=== PATIENT | female | born 2005 | race Caucasian/White ===

== ENCOUNTER 2025-07-11 15:08 | Inpatient (IN) ==
[2025-07-11 16:42] LABS: Base Excess VBG 0.9 mEq/L; HCO3 VBG 22 mmol/L; Oxygen Saturation VBG 87.0 %; PCO2 VBG 25 mmHg (38-50); PO2 VBG 52 mmHg; pH VBG 7.55 (7.36-7.41)
[2025-07-11] MEDS: ACETAMINOPHEN 1,000 MG/100 ML VIAL IV STA (16:57)
[2025-07-11] MEDS: SODIUM CHLORIDE 0.9% 1,000 ML IV SCH ×2 (16:57→20:59)
[2025-07-11 17:01] LABS: Hematocrit (blood only) 20.8 % (37.0-47.0); Hemoglobin 7.5 g/dl (12.0-16.0); White Blood Count 0.32 K/ul (4.8-10.8)
[2025-07-11 17:01] LABS: Appearance Urine Clear (Clear); Bacteria Urine Automated None Seen (None Seen); Cast Urine Automated 0-2 /lpf (0-2); Epithelial Cell Urine Auto 0-2 /hpf (0-2); Glucose Urine UA Negative (Negative); RBC Urine Automated 0-2 /hpf (0-2); WBC Urine Automated 0-5 /hpf (0-5)
[2025-07-11 17:03] LABS: Mean Corpuscular Hemoglobin 30.5 pg (25.0-34.0); Mean Corpuscular Volume 84.6 fL (80.0-100.0); RDW Standard Deviation 48.8 fL (36.4-46.3); Red Blood Count 2.46 M/uL (4.20-5.40)
[2025-07-11 17:08] LABS: Alanine Aminotransferase 58.0 U/L (7-52); Alkaline Phosphatase 78.0 U/L (34-104); Anion Gap 9.0 (3-11); Bilirubin,Total 0.8 mg/dl (0.2-1.0); Blood Urea Nitrogen 17.0 mg/dl (6-23); Calcium 8.9 mg/dl (8.6-10.3); Carbon Dioxide 23.0 mmol/L (21-32); Chloride 104.0 mmol/L (98-107); Creatinine Clr Calc Pharmacy 126.0 ml/min; Glucose 115.0 mg/dl (70-99(Fasting)); Magnesium 1.7 mg/dl (1.7-2.4); Potassium 3.6 mmol/L (3.5-5.1); Sodium 136.0 mmol/L (136-145); Total Protein 6.4 gm/dl (6.0-8.3)
[2025-07-11 17:09] LABS: Platelet Count 9 K/uL (130-400)
--- NOTE | 2025-07-11 17:25 | XRay Report ---
Chest radiograph, one view History: Sepsis Comparison: None Findings: Single AP view of the chest performed. No focal consolidation or pleural effusion. No pneumothorax. Left chest wall port with catheter tip at the lower SVC. Right mastectomy changes. The cardiomediastinal silhouette is within normal limits. Normal pulmonary vascularity. No evidence for lymphadenopathy. No visualized bony or soft tissue abnormality. Impression: Normal chest radiograph Electronically signed by Tomasz Amin 07-11-2025 5:25 PM
[2025-07-11] MEDS: OPTIRAY 320 125ml IV ONE (17:28)
[2025-07-11 17:36] LABS: INR 1.0 (0.9-1.1); Prothrombin Time 11.2 Seconds (9.0-12.0)
--- NOTE | 2025-07-11 17:40 | Emergency Department Note ---
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 Fever began today. Tmax 102. Patient reports no chest pain difficulty breathing nausea vomiting diarrhea headache or abdominal pain. Patient does report she received chemotherapy on July 01 July 02 and July 03 at [place] and then traveled back to the area here where she lives. Home Medications Medication Instructions Recorded Confirmed Type loratadine 10 mg tablet (Claritin) 10 mg PO HS 07/11/25 07/11/25 History Allergies Allergy/AdvReac Type Severity Reaction Status Date / Time No Known Allergies Allergy Verified 07/11/25 18:11 Past Med/Surg History Problem List (Updated 07/11/25 @ 19:10 by Jonathan Goyal MD) Thrombocytopenia (Acute) Neutropenic fever (Acute) Breast mass, right Medical History No pertinent past medical history Surgical History H/O wisdom tooth extraction Family History Mother No problems noted. Father No problems noted. Grandfather (Paternal) Hypertension Myocardial infarction Grandmother (Paternal) Breast cancer Denies family history of Ovarian cancer Prostate cancer Colorectal cancer Social History Smoking Status: Never smoker Hx Alcohol Use: No Hx Substance Use: No Preferred Language: Chinese Visual Impairment: No Limitations Hearing Ability: Normal marital status: Single Current Living Situation: Family Current Living Situation Comment: Mom, Dad, 2 brothers and a dog current occupational status: student Feels Safe at Home: Yes Childhood Exposure to Second-Hand Smoke: No Diet: regular caffeine: No during the past year weight has: remained stable Dental Care, Regularly: Yes Physical Activity Frequency: 5-6 Times per Week Seatbelt Use: always Sunscreen Use: Yes Physical Exam Vital Signs Vital Signs - 24 hr 07/11/25 15:40 07/11/25 16:03 07/11/25 16:06 Temperature 37.7 C H 38.0 C H Temperature Source Oral Oral Pulse Rate 136 H 114 H Pulse Rate [Apical] 109 H Pulse Rate from SpO2 Sensor 115 H Respiratory Rate 18 14 20 Respiratory Effort / Characteristics Non-Labored Spontaneous Non-Labored Spontaneous Respiratory Depth Normal Normal Respiratory Pattern Regular Regular Blood Pressure 100/67 Blood Pressure [Right Arm] 107/71 Blood Pressure Mean 78 Blood Pressure Mean [Right Arm] 83 Blood Pressure Position [Right Arm] Sitting Pulse Oximetry 99 100 99 Oxygen Delivery Method Room Air Room Air Sepsis Recent Fever Within 48 Hours No Sepsis New/Unexplained Change in Mental Status N/A Sepsis Action Taken by Nursing No Action Required 07/11/25 16:07 07/11/25 16:12 07/11/25 16:30 Temperature Temperature Source Pulse Rate 113 H Pulse Rate [Apical] Pulse Rate from SpO2 Sensor 128 H 108 H Respiratory Rate 18 18 Respiratory Effort / Characteristics Respiratory Depth Respiratory Pattern Blood Pressure Blood Pressure [Right Arm] Blood Pressure Mean Blood Pressure Mean [Right Arm] Blood Pressure Position [Right Arm] Pulse Oximetry 99 99 Oxygen Delivery Method Sepsis Recent Fever Within 48 Hours Sepsis New/Unexplained Change in Mental Status Sepsis Action Taken by Nursing 07/11/25 16:31 07/11/25 16:31 07/11/25 16:48 Temperature Temperature Source Pulse Rate 120 H Pulse Rate [Apical] Pulse Rate from SpO2 Sensor 122 H Respiratory Rate 16 Respiratory Effort / Characteristics Respiratory Depth Respiratory Pattern Blood Pressure 104/68 104/68 Blood Pressure [Right Arm] Blood Pressure Mean 76 76 Blood Pressure Mean [Right Arm] Blood Pressure Position [Right Arm] Pulse Oximetry 100 Oxygen Delivery Method Sepsis Recent Fever Within 48 Hours Sepsis New/Unexplained Change in Mental Status Sepsis Action Taken by Nursing 07/11/25 17:00 07/11/25 17:42 07/11/25 17:48 Temperature 37.5 C Temperature Source Pulse Rate 111 H 104 H 107 H Pulse Rate [Apical] Pulse Rate from SpO2 Sensor 111 H 107 H Respiratory Rate 20 19 19 Respiratory Effort / Characteristics Respiratory Depth Respiratory Pattern Blood Pressure 105/73 110/65 111/69 Blood Pressure [Right Arm] Blood Pressure Mean 83 71 83 Blood Pressure Mean [Right Arm] Blood Pressure Position [Right Arm] Pulse Oximetry 99 99 98 Oxygen Delivery Method Sepsis Recent Fever Within 48 Hours Sepsis New/Unexplained Change in Mental Status Sepsis Action Taken by Nursing 07/11/25 18:18 07/11/25 18:33 07/11/25 18:45 Temperature Temperature Source Pulse Rate 105 H 118 H 100 H Pulse Rate [Apical] Pulse Rate from SpO2 Sensor 105 H 119 H Respiratory Rate 15 18 15 Respiratory Effort / Characteristics Respiratory Depth Respiratory Pattern Blood Pressure 98/59 L 110/63 106/69 Blood Pressure [Right Arm] Blood Pressure Mean 72 78 82 Blood Pressure Mean [Right Arm] Blood Pressure Position [Right Arm] Pulse Oximetry 98 99 98 Oxygen Delivery Method Sepsis Recent Fever Within 48 Hours Sepsis New/Unexplained Change in Mental Status Sepsis Action Taken by Nursing 07/11/25 18:45 07/11/25 19:00 07/11/25 19:18 Temperature Temperature Source Pulse Rate 100 H Pulse Rate [Apical] Pulse Rate from SpO2 Sensor 98 H 106 H Respiratory Rate 14 Respiratory Effort / Characteristics Respiratory Depth Respiratory Pattern Blood Pressure 106/69 114/76 Blood Pressure [Right Arm] Blood Pressure Mean 82 82 Blood Pressure Mean [Right Arm] Blood Pressure Position [Right Arm] Pulse Oximetry 99 99 Oxygen Delivery Method Sepsis Recent Fever Within 48 Hours Sepsis New/Unexplained Change in Mental Status Sepsis Action Taken by Nursing 07/11/25 19:19 07/11/25 19:33 07/11/25 19:45 Temperature 37.2 C Temperature Source Oral Pulse Rate Pulse Rate [Apical] Pulse Rate from SpO2 Sensor 94 H 103 H Respiratory Rate 14 Respiratory Effort / Characteristics Respiratory Depth Respiratory Pattern Blood Pressure 106/69 110/73 Blood Pressure [Right Arm] Blood Pressure Mean 81 90 Blood Pressure Mean [Right Arm] Blood Pressure Position [Right Arm] Pulse Oximetry 100 100 Oxygen Delivery Method Sepsis Recent Fever Within 48 Hours Sepsis New/Unexplained Change in Mental Status Sepsis Action Taken by Nursing 07/11/25 19:45 07/11/25 20:01 Temperature Temperature Source Pulse Rate 101 H Pulse Rate [Apical] Pulse Rate from SpO2 Sensor Respiratory Rate Respiratory Effort / Characteristics Respiratory Depth Respiratory Pattern Blood Pressure 110/73 Blood Pressure [Right Arm] Blood Pressure Mean 90 Blood Pressure Mean [Right Arm] Blood Pressure Position [Right Arm] Pulse Oximetry Oxygen Delivery Method Sepsis Recent Fever Within 48 Hours Sepsis New/Unexplained Change in Mental Status Sepsis Action Taken by Nursing Physical Exam GENERAL: Cachectic. HENT: Exam performed. -Head: Normocephalic and atraumatic. -Mouth/Throat: The oropharynx is clear and moist. No trismus in the jaw. No dental abscesses or uvula swelling. No oropharyngeal exudate or tonsillar abscesses. EYES: Conjunctivae and EOM are normal. Pupils are equal, round, and reactive to light. Right eye exhibits no discharge. Left eye exhibits no discharge. No scleral icterus. NECK: Normal range of motion. Neck supple. No JVD present. CV: Tachycardic rate, regular rhythm, normal heart sounds and intact distal pulses. There is no peripheral edema. Palpable radial pulses bue. PULM/CHEST: Effort normal and breath sounds normal. No respiratory distress. No stridor. She has no wheezes. She has no rales. ABD: The abdomen is soft. There is no tenderness. There is no rebound, no guarding. NEURO: She is alert and oriented to person, place, and time. She has normal strength. No cranial nerve deficit or sensory deficit. Coordination and gait normal. GCS eye subscore is 4. GCS verbal subscore is 5. GCS motor subscore is 6. Cerebellar tests wnl. Course Course 1603: The patient was evaluated in room B10. A complete history and physical exam was performed Cardiac monitoring: An order was placed for continuous cardiac monitoring. The monitor shows a rate of 110 with sinus tachycardia rhythm interpreted by [facility] Sepsis protocols initiated. 1850: Vital signs stable. Labs show white blood cell count of 0.32 hemoglobin 7.5 platelet count 9 neutrophil count less than 0.5 lactic acid within normal limits. Urinalysis CTA chest CT head BioFire negative. Spoke with the patient's oncology team at [facility] Dr. Janet Durand ([phone]). She agrees with work up to this point. She states to add vancomycin on for the patient 1 dose and obtain a MRSA swab. She also asked that 1 unit of platelets to be transfused for the patient. Patient will be admitted to the [facility] team. Administered Medications Vancomycin HCl (Vancomycin Hcl / Nss) 1,000 mg in 270 mls @ 200 mls/hr IV NOW STA Stop: 07/11/25 21:31 Last Admin: 07/11/25 20:33 Dose: 200 mls/hr Documented By: SARAH Discontinued Medications Sodium Chloride (Nss) 1,000 mls @ 999 mls/hr IV .Q1H1M EMILIA Stop: 07/11/25 18:15 Last Admin: 07/11/25 18:28 Dose: 999 mls/hr Documented By: Infusion: 07/11/25 17:58 Dose: Infused Documented By: Admin: 07/11/25 16:57 Dose: 999 mls/hr Documented By: SARAH Acetaminophen (Ofirmev) 1,000 mg in 100 mls @ 400 mls/hr IV NOW STA Stop: 07/11/25 16:27 Last Infusion: 07/11/25 17:42 Dose: Infused Documented By: Admin: 07/11/25 16:57 Dose: 400 mls/hr Documented By: SARAH Cefepime HCl (Maxipime 2000mg) 2,000 mg in 20 mls @ 5 mls/min IV NOW STA; Protocol Stop: 07/11/25 17:17 Last Admin: 07/11/25 17:42 Dose: 5 mls/min Documented By: SARAH Ioversol (Optiray 320 125ml) 120 ml IV ONCE ONE Stop: 07/11/25 17:29 Last Admin: 07/11/25 17:28 Dose: 120 ml Documented By: MERNA Critical Care Time Critical Care Time: Yes Total Critical Care Time: 40 I have personally spent greater than 40 minutes of critical care time in the direct management of this patient. This includes bedside care, interpretation of diagnostic studies, and testing, discussion with consultants, patient, and family members, and other required patient management activities. This 40 minutes is in excess of all separately billable procedures. Medical Decision Making Laboratory Data Attestation: I reviewed the patient's lab results. 07/11/25 16:30 07/11/25 16:30 Lab Results 07/11/25 07/11/25 07/11/25 Range/Units 16:30 16:35 18:55 WBC 0.32 L* (4.8-10.8) K/ul RBC 2.46 L (4.20-5.40) M/uL Hgb 7.5 L (12.0-16.0) g/dl Hct 20.8 L* (37.0-47.0) % MCV 84.6 (80.0-100.0) fL MCH 30.5 (25.0-34.0) pg MCHC 36.1 H (32.0-36.0) g/dL RDW Std Deviation 48.8 H (36.4-46.3) fL RDW Coeff of Serina 15.8 H (11.5-14.5) % Plt Count 9 L* (130-400) K/uL Neut # (Auto) < 0.50 L* (1.40-6.50) K/uL PT 11.2 (9.0-12.0) Seconds INR 1.0 (0.9-1.1) VBG pH 7.55 H (7.36-7.41) VBG pCO2 25 L (38-50) mmHg VBG pO2 52 mmHg VBG HCO3 22 mmol/L VBG O2 Saturation 87.0 % VBG Base Excess 0.9 mEq/L Sodium 136 (136-145) mmol/L Potassium 3.6 (3.5-5.1) mmol/L Chloride 104 (98-107) mmol/L Carbon Dioxide 23 (21-32) mmol/L Anion Gap 9 (3-11) BUN 17 (6-23) mg/dl Creatinine 0.47 L (0.6-1.2) mg/dl Est Cr Clr Drug Dosing 126.0 ml/min eGFR 139.68 BUN/Creatinine Ratio 36.2 H (10-20) Glucose 115 H (70-99(Fasting)) mg/dl Lactate 0.5 (0.4-2.0) mmol/L Calcium 8.9 (8.6-10.3) mg/dl Magnesium 1.7 (1.7-2.4) mg/dl Total Bilirubin 0.8 (0.2-1.0) mg/dl Direct Bilirubin 0.2 (0-0.2) mg/dl AST 17 (13-39) U/L ALT 58 H (7-52) U/L Alkaline Phosphatase 78 (34-104) U/L Troponin I High Sens 6.9 (0-14) pg/ml Total Protein 6.4 (6.0-8.3) gm/dl Albumin 3.8 (3.4-5.0) gm/dl Procalcitonin 0.11 (0-0.5) ng/ml Urine Color Yellow Urine Appearance Clear (Clear) Urine pH 7.5 (4.5-7.5) Ur Specific [place] 1.023 (1.000-1.030) Urine Protein Trace H (Negative) Urine Glucose (UA) Negative (Negative) Urine Ketones 1+ H (Negative) Urine Blood Negative (Negative) Urine Nitrite Negative (Negative) Urine Bilirubin Negative (Negative) Urine Urobilinogen Negative (Negative) Ur Leukocyte Esterase Negative (Negative) Urine WBC (Auto) 0-5 (0-5) /hpf Urine RBC (Auto) 0-2 (0-2) /hpf U Hyaline Cast (Auto) 0-2 (0-2) /lpf U Epithel Cells (Auto) 0-2 (0-2) /hpf Urine Bacteria (Auto) None Seen (None Seen) Urine Comment Nasal Screen MRSA (PCR) Negative (Negative) Adenovirus (PCR) Not Detected (NotDetected) B. pertussis DNA (PCR) Not Detected (NotDetected) B.parapertussis DNA PCR Not Detected (NotDetected) C. pneumoniae DNA (PCR) Not Detected (NotDetected) Coronavirus OC43 (PCR) Not Detected (NotDetected) Coronavirus HKU1 (PCR) Not Detected (NotDetected) Coronavirus 229E (PCR) Not Detected (NotDetected) SARS-CoV-2 (PCR) Not Detected (NotDetected) Coronavirus NL63 (PCR) Not Detected (NotDetected) Human Metapneumovir PCR Not Detected (NotDetected) Influenza Type A (PCR) Not Detected (NotDetected) Influenza Type B (PCR) Not Detected (NotDetected) M. pneumoniae (PCR) Not Detected (NotDetected) Parainfluenza 1 (PCR) Not Detected (NotDetected) Parainfluenza 2 (PCR) Not Detected (NotDetected) Parainfluenza 3 (PCR) Not Detected (NotDetected) Parainfluenza 4 (PCR) Not Detected (NotDetected) RSV (PCR) Not Detected (NotDetected) Entero/Rhino (PCR) Not Detected (NotDetected) Imaging Data Attestation: I personally reviewed and interpreted this imaging study as follows: My Impression: Chest x-ray negative. Airway clear. No pneumothorax. No consolidation. No cardiomegaly or cephalization.. No free air under the diaphragm. No fractures of the skeletal structures. Radiologist's Impression: Chest X-Ray 07/11/25 16:03 Chest radiograph, one view History: Sepsis Comparison: None Findings: Single AP view of the chest performed. No focal consolidation or pleural effusion. No pneumothorax. Left chest wall port with catheter tip at the lower SVC. Right mastectomy changes. The cardiomediastinal silhouette is within normal limits. Normal pulmonary vascularity. No evidence for lymphadenopathy. No visualized bony or soft tissue abnormality. Impression: Normal chest radiograph Electronically signed by Tomasz Amin 07-11-2025 5:25 PM Chest CTA 07/11/25 16:15 CT pulmonary angiogram with IV contrast History: Chest pain COMPARISON: None TECHNIQUE: CT angiography of the chest was performed without IV contrast followed by IV contrast, including 3D post processing CTA image reconstruction. Dose reduction techniques were achieved by using automatic exposure control and/or adjustment of mA and/or kV according to patient size and/or use of iterative reconstruction technique. FINDINGS: Diagnostic quality: Adequate There is no evidence for pulmonary embolism. Left chest wall port with catheter tip at the superior atrial caval junction. The heart is not enlarged. There is no pericardial effusion. There are no abnormally enlarged hilar or mediastinal lymph nodes. The central tracheobronchial tree is clear. The lungs are clear. There is no pleural effusion. Limited visualized upper abdomen. No destructive osseous changes are seen. Right mastectomy. IMPRESSION: No evidence for pulmonary embolism. Electronically signed by Tomasz Amin 07-11-2025 5:[address] 07/11/25 16:58 CT head without contrast History: Rule out PE Comparison: None Technique: Using multidetector thin collimation helical acquisition technique, axial, coronal and sagittal CT images from the skull base to the vertex were obtained without intravenous contrast. Dose reduction techniques were achieved by using automatic exposure control and/or adjustment of mA and/or kV according to patient size and/or use of iterative reconstruction technique. Findings: No intracranial hemorrhage, mass-effect, or midline shift. The ventricles are proportionate to the cerebral sulci. The morrell to white matter differentiation of the cerebral hemispheres is preserved. The basal cisterns are patent. The visualized paranasal sinuses are clear. Mastoid air cells are clear. Impression: No acute intracranial pathology. Electronically signed by Tomasz Amin 07-11-2025 5:50 PM ECG Data Attestation: I personally reviewed and interpreted this ECG as follows: Rate (beats per minute): 109 ECG Intervals/blocks: + Normal MT and + Normal QT-c ECG ST segments: + Normal ST segments Additional Comments: QRS 78 MDM Narrative 1603: The patient was evaluated in room B10. A complete history and physical exam was performed Cardiac monitoring: An order was placed for continuous cardiac monitoring. The monitor shows a rate of 110 with sinus tachycardia rhythm interpreted by me 1850: Vital signs stable. Labs show white blood cell count of 0.32 hemoglobin 7.5 platelet count 9 neutrophil count less than 0.5 lactic acid within normal limits. Urinalysis CTA chest CT head BioFire negative. Spoke with the patient's oncology team at [facility] Dr. Janet Durand ([phone]). She agrees with work up to this point. She states to add vancomycin on for the patient 1 dose and obtain a MRSA swab. She also asked that 1 unit of platelets to be transfused for the patient. Patient will be admitted to the [facility] team. Impression & Plan Neutropenic fever, Thrombocytopenia Discharge Plan Visit Data Chief Complaint: Fever Stated Complaint: NEUTRUPENIA INDUCED FEVER ED Provider: Jonathan Goyal Discharge Problem: Neutropenic fever, Thrombocytopenia Patient Disposition: Admitted As Inpatient Condition: Serious Forms Stand Alone Forms: [employer] Prescriptions Prescriptions: No Action loratadine [Claritin] 10 mg Tablet 10 mg PO HS Referrals Referrals: PCP,NO [Primary Care Provider] -
[2025-07-11 17:42] LABS: Chlamydia pneumoniae PCR Not Detected (NotDetected); Coronavirus 229E PCR Not Detected (NotDetected); Coronavirus CoV-2 (COVID19)PCR Not Detected (NotDetected); Coronavirus HKU1 PCR Not Detected (NotDetected); Coronavirus NL63 PCR Not Detected (NotDetected); Coronavirus OC43PCR Not Detected (NotDetected); Human Metapneumovirus PCR Not Detected (NotDetected); Parainfluenza Virus 1 PCR Not Detected (NotDetected); Parainfluenza Virus 2 PCR Not Detected (NotDetected); Parainfluenza Virus 3 PCR Not Detected (NotDetected); Parainfluenza Virus 4 PCR Not Detected (NotDetected); Respiratory Syncytial VirusPCR Not Detected (NotDetected); Rhinovirus/Enterovirus PCR Not Detected (NotDetected)
[2025-07-11] MEDS: CEFEPIME 2000MG 2,000 MG/20 ML SYR IV STA (17:42)
--- NOTE | 2025-07-11 17:51 | CT Scan Report ---
CT pulmonary angiogram with IV contrast History: Chest pain COMPARISON: None TECHNIQUE: CT angiography of the chest was performed without IV contrast followed by IV contrast, including 3D post processing CTA image reconstruction. Dose reduction techniques were achieved by using automatic exposure control and/or adjustment of mA and/or kV according to patient size and/or use of iterative reconstruction technique. FINDINGS: Diagnostic quality: Adequate There is no evidence for pulmonary embolism. Left chest wall port with catheter tip at the superior atrial caval junction. The heart is not enlarged. There is no pericardial effusion. There are no abnormally enlarged hilar or mediastinal lymph nodes. The central tracheobronchial tree is clear. The lungs are clear. There is no pleural effusion. Limited visualized upper abdomen. No destructive osseous changes are seen. Right mastectomy. IMPRESSION: No evidence for pulmonary embolism. Electronically signed by Tomasz Amin 07-11-2025 5:50 PM
--- NOTE | 2025-07-11 17:53 | CT Scan Report ---
CT head without contrast History: Rule out PE Comparison: None Technique: Using multidetector thin collimation helical acquisition technique, axial, coronal and sagittal CT images from the skull base to the vertex were obtained without intravenous contrast. Dose reduction techniques were achieved by using automatic exposure control and/or adjustment of mA and/or kV according to patient size and/or use of iterative reconstruction technique. Findings: No intracranial hemorrhage, mass-effect, or midline shift. The ventricles are proportionate to the cerebral sulci. The morrell to white matter differentiation of the cerebral hemispheres is preserved. The basal cisterns are patent. The visualized paranasal sinuses are clear. Mastoid air cells are clear. Impression: No acute intracranial pathology. Electronically signed by Tomasz Amin 07-11-2025 5:50 PM
[2025-07-11] MEDS ORDERED: VANCOMYCIN HCL 750 MG in SODIUM CHLORIDE 0.9% 500 ML IV ONE (18:51)
[2025-07-11] MEDS ORDERED: VANCOMYCIN CONSULT ACTIVE PRN ×2 (18:51→22:06)
[2025-07-11] MEDS ORDERED: SODIUM CHLORIDE 0.9% 100 ML IV PRN (18:52)
--- NOTE | 2025-07-11 19:44 | History & Physical Report ---
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 Finished third round of chemotherapy last week, 07/01-07/03. Currently getting chemotherapy every 3 weeks. Primary oncologist at [facility] is Kathy Wilson MD ([phone]). Plt ct 9k, WBC 0.32k, Hgb 7.5 (no s/sx of active bleeding). Patient reportedly received filgrastim following her chemotherapy round last week. HIM consult placed to obtain records from [facility]. Respiratory BioFire negative. MRSA nasal swab negative. Blood cultures pending, continue empiric IV vancomycin and cefepime. Neutropenic precautions. Will give 1U platelets as per recommendation of patient's primary oncologist (ED provider was in contact). DVT Prophylaxis: SCDs/TEDs only given above Disposition: Admit to med/surg Patient seen in collaboration with Dr. Youssef. Please see addendum. I spent a total of 50 minutes coordinating, documenting, and providing care for this patient excluding time spent in the performance of separately billed services or time spent by another provider/QHP. This included personally reviewing all current laboratories and imaging studies, medical reconciliation, outpatient chart review and discussion with specialists. This chart was completed in part utilizing Speech Voice Recognition Software. Grammatical errors, random word insertions, pronoun errors, and incomplete sentences are an occasional consequence of this system due to software limitations, ambient noise, and hardware issues. Any formal questions or concerns about the content, text, or information contained within the body of this dictation should be directly addressed to the provider for clarification. 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 Finished third round of chemotherapy last week, 07/01-07/03. Currently getting chemotherapy every 3 weeks. Primary oncologist at [facility] is Kathy Wilson MD. Other than fatigue and fever, patient exhibits no other significant symptoms. Denies any cough, congestion, SOB, chest pain, abdominal pain, bowel habit changes or urinary habit changes. Appetite fair. No N/V. Has not noticed any erythema surrounding her left upper chest wall port site or any drainage from this either. No use of tobacco, alcohol or recreational drugs. Above history obtained from the patient, patient's parents at bedside, discussion with ED provider and associated chart review. Patient seen at bedside in ED with Dr. Youssef. Allergies Allergy/AdvReac Type Severity Reaction Status Date / Time No Known Allergies Allergy Verified 07/11/25 18:11 Home Medications Medication Instructions Recorded Confirmed Type loratadine 10 mg tablet (Claritin) 10 mg PO HS 07/11/25 07/11/25 History Past Med/Surg History Problem List (Updated 07/11/25 @ 22:22 by Nancie Corley PA-C) Malignant phyllodes tumor of right breast Pancytopenia Thrombocytopenia (Acute) Neutropenic fever (Acute) Breast mass, right Medical History No pertinent past medical history Surgical History H/O wisdom tooth extraction Family History Mother No problems noted. Father No problems noted. Grandfather (Paternal) Hypertension Myocardial infarction Grandmother (Paternal) Breast cancer Denies family history of Ovarian cancer Prostate cancer Colorectal cancer Social History Smoking Status: Unknown if ever smoked Hx Alcohol Use: No Hx Substance Use: No Preferred Language: [place] Communication Ability: Effective Visual Impairment: No Limitations Hearing Ability: Normal [employer] Special Agent Required: No Beliefs That Will Affect Care: None marital status: Single Current Living Situation: Family Current Living Situation Comment: Mom, Dad, 2 brothers and a dog current occupational status: student Other Information That Helps Us Care for You: No Feels Safe at Home: Yes Safety Concerns: Feels Safe At This Time Childhood Exposure to Second-Hand Smoke: No Diet: regular caffeine: No during the past year weight has: remained stable Dental Care, Regularly: Yes Physical Activity Frequency: 5-6 Times per Week Seatbelt Use: always Sunscreen Use: Yes Assistive Devices: None Review of Systems Review of Systems: At least ten systems reviewed and negative, except as noted in the HPI. Physical Exam Physical Exam: Please refer to Dr. Youssef's addendum for physical examination findings. Results & Data Results & Data Vital Signs (Past 12 Hours) Vital Signs Temp Pulse Pulse Resp BP BP Pulse Ox 07/11/25 19:19 37.2 C 07/11/25 19:00 100 H 14 114/76 99 07/11/25 18:45 106/69 07/11/25 18:45 100 H 15 106/69 98 07/11/25 18:33 118 H 18 110/63 99 07/11/25 18:18 105 H 15 98/59 L 98 07/11/25 17:48 107 H 19 111/69 98 07/11/25 17:42 37.5 C 104 H 19 110/65 99 07/11/25 17:00 111 H 20 105/73 99 07/11/25 16:48 120 H 16 100 07/11/25 16:31 104/68 07/11/25 16:31 104/68 07/11/25 16:30 18 99 07/11/25 16:12 18 99 07/11/25 16:07 113 H 07/11/25 16:06 114 H 20 99 07/11/25 16:03 38.0 C H 109 H 14 107/71 100 07/11/25 15:40 37.7 C H 136 H 18 100/67 99 O2 Del Method 07/11/25 19:19 07/11/25 19:00 07/11/25 18:45 07/11/25 18:45 07/11/25 18:33 07/11/25 18:18 07/11/25 17:48 07/11/25 17:42 07/11/25 17:00 07/11/25 16:48 07/11/25 16:31 07/11/25 16:31 07/11/25 16:30 07/11/25 16:12 07/11/25 16:07 07/11/25 16:06 07/11/25 16:03 Room Air 07/11/25 15:40 Room Air Laboratory Results Short CBC 07/11/25 Range/Units 16:30 WBC 0.32 L* (4.8-10.8) K/ul Hgb 7.5 L (12.0-16.0) g/dl Hct 20.8 L* (37.0-47.0) % Plt Count 9 L* (130-400) K/uL BMP 07/11/25 16:30 Sodium 136 Potassium 3.6 Chloride 104 Carbon Dioxide 23 BUN 17 Creatinine 0.47 L Glucose 115 H Calcium 8.9 Liver Function 07/11/25 Range/Units 16:30 Total Bilirubin 0.8 (0.2-1.0) mg/dl Direct Bilirubin 0.2 (0-0.2) mg/dl AST 17 (13-39) U/L ALT 58 H (7-52) U/L Alkaline Phosphatase 78 (34-104) U/L Albumin 3.8 (3.4-5.0) gm/dl Urine 07/11/25 Range/Units 16:35 Urine Color Yellow Urine Appearance Clear (Clear) Urine pH 7.5 (4.5-7.5) Ur Specific [place] 1.023 (1.000-1.030) Urine Protein Trace H (Negative) Urine Glucose (UA) Negative (Negative) Diagnostic Findings Chest X-Ray 07/11/25 16:03 Chest radiograph, one view History: Sepsis Comparison: None Findings: Single AP view of the chest performed. No focal consolidation or pleural effusion. No pneumothorax. Left chest wall port with catheter tip at the lower SVC. Right mastectomy changes. The cardiomediastinal silhouette is within normal limits. Normal pulmonary vascularity. No evidence for lymphadenopathy. No visualized bony or soft tissue abnormality. Impression: Normal chest radiograph Electronically signed by Tomasz Amin 07-11-2025 5:25 PM Chest CTA 07/11/25 16:15 CT pulmonary angiogram with IV contrast History: Chest pain COMPARISON: None TECHNIQUE: CT angiography of the chest was performed without IV contrast followed by IV contrast, including 3D post processing CTA image reconstruction. Dose reduction techniques were achieved by using automatic exposure control and/or adjustment of mA and/or kV according to patient size and/or use of iterative reconstruction technique. FINDINGS: Diagnostic quality: Adequate There is no evidence for pulmonary embolism. Left chest wall port with catheter tip at the superior atrial caval junction. The heart is not enlarged. There is no pericardial effusion. There are no abnormally enlarged hilar or mediastinal lymph nodes. The central tracheobronchial tree is clear. The lungs are clear. There is no pleural effusion. Limited visualized upper abdomen. No destructive osseous changes are seen. Right mastectomy. IMPRESSION: No evidence for pulmonary embolism. Electronically signed by Tomasz Amin 07-11-2025 5:[address] 07/11/25 16:58 CT head without contrast History: Rule out PE Comparison: None Technique: Using multidetector thin collimation helical acquisition technique, axial, coronal and sagittal CT images from the skull base to the vertex were obtained without intravenous contrast. Dose reduction techniques were achieved by using automatic exposure control and/or adjustment of mA and/or kV according to patient size and/or use of iterative reconstruction technique. Findings: No intracranial hemorrhage, mass-effect, or midline shift. The ventricles are proportionate to the cerebral sulci. The morrell to white matter differentiation of the cerebral hemispheres is preserved. The basal cisterns are patent. The visualized paranasal sinuses are clear. Mastoid air cells are clear. Impression: No acute intracranial pathology. Electronically signed by Tomasz Amin 07-11-2025 5:50 PM Medications Administered Sodium Chloride (Nss) 1,000 mls @ 80 mls/hr IV .[id number] EMILIA Stop: 07/12/25 09:29 Last Admin: 07/11/25 20:59 Dose: 80 mls/hr Documented By: SARAH Discontinued Medications Sodium Chloride (Nss) 1,000 mls @ 999 mls/hr IV .[id number] EMILIA Stop: 07/11/25 18:15 Last Infusion: 07/11/25 20:37 Dose: Infused Documented By: Admin: 07/11/25 18:28 Dose: 999 mls/hr Documented By: Infusion: 07/11/25 17:58 Dose: Infused Documented By: Admin: 07/11/25 16:57 Dose: 999 mls/hr Documented By: SARAH Acetaminophen (Ofirmev) 1,000 mg in 100 mls @ 400 mls/hr IV NOW STA Stop: 07/11/25 16:27 Last Infusion: 07/11/25 17:42 Dose: Infused Documented By: Admin: 07/11/25 16:57 Dose: 400 mls/hr Documented By: SARAH Cefepime HCl (Maxipime 2000mg) 2,000 mg in 20 mls @ 5 mls/min IV NOW STA; Protocol Stop: 07/11/25 17:17 Last Admin: 07/11/25 17:42 Dose: 5 mls/min Documented By: SARAH Vancomycin HCl (Vancomycin Hcl / Nss) 1,000 mg in 270 mls @ 200 mls/hr IV NOW STA Stop: 07/11/25 21:31 Last Admin: 07/11/25 20:33 Dose: 200 mls/hr Documented By: SARAH Ioversol (Optiray 320 125ml) 120 ml IV ONCE ONE Stop: 07/11/25 17:29 Last Admin: 07/11/25 17:28 Dose: 120 ml Documented By: MERNA Code Status & VTE Plan Code Status FULL CODE Supervising Physician Co-Signing Physician Notes Attending addendum: The patient was seen and examined in emergency room in presence of the parents She is only 20 years old female with 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 and has been undergoing chemotherapy at [facility] She gets 3 days of chemotherapy every 3 weeks and got her last chemo on July 01, and Noted to have fever of 102 this morning without any other significant symptoms On examination Lying in bed without any apparent distress Tachycardia of 101 and remains afebrile Chestclear to auscultate bilaterally and the port on the anterior chest wall intact HeartS1-S2, regular Abdomenbenign and bowel sound present Extremities no edema Her labs and imaging studies reviewed Noted to have low white count of 0.32, hemoglobin of 7.5 and platelet of 9 with absolute neutrophil count less than 0.5 L The ER physician discussed the case with her oncologist and was advised to give intravenous Cefepime and vancomycin and also 1 unit of platelet pheresis Apparently she received Neupogen following the chemo May need blood transfusion if Hb goes down <7.0 Blood cultures have been taken and she will be admitted to medical floor for continuation of care Agree with assessment and plan as outlined above by Nancie Corley PA-C and take the full responsibility of care in the hospital Dr Juan Youssef
[2025-07-11] MEDS: VANCOMYCIN HCL / NSS 1,000 MG/270 ML BAG IV STA (20:33)
[2025-07-11] MEDS ORDERED: ONDANSETRON INJ 2 MG/ML 2 ML VIAL IV PRN ×2 (20:47→22:06)
[2025-07-11] MEDS ORDERED: MAGNESIUM HYDROXIDE SUSP 30 ML UDC PO PRN (22:06)
[2025-07-11] MEDS ORDERED: POLYETHYLENE (MIRALAX) 17 GM PACK PO PRN (22:06)
[2025-07-11] MEDS: LORATADINE 10 MG TAB PO SCH (22:59)
[2025-07-12] MEDS: ACETAMINOPHEN 325 MG TAB PO PRN (00:15)
[2025-07-12] MEDS: VANCOMYCIN 750 MG in SODIUM CHLORIDE 0.9% 250 ML IV SCH (02:10)
[2025-07-12] MEDS: CEFEPIME 2000MG 2,000 MG/20 ML SYR IV SCH (02:10)
[2025-07-12 06:59] LABS: Hematocrit (blood only) 16.9 % (37.0-47.0); Hemoglobin 5.8 g/dl (12.0-16.0); Mean Corpuscular Hemoglobin 30.1 pg (25.0-34.0); Mean Corpuscular Volume 87.6 fL (80.0-100.0); Platelet Count 14 K/uL (130-400); RDW Standard Deviation 50.8 fL (36.4-46.3); Red Blood Count 1.93 M/uL (4.20-5.40); White Blood Count 0.43 K/ul (4.8-10.8)
[2025-07-12 07:22] LABS: Alanine Aminotransferase 39.0 U/L (7-52); Albumin Globulin Ratio 1.5 (0.9-2); Alkaline Phosphatase 51.0 U/L (34-104); Anion Gap 2.0 (3-11); Bilirubin,Total 0.6 mg/dl (0.2-1.0); Blood Urea Nitrogen 8.0 mg/dl (6-23); Calcium 7.8 mg/dl (8.6-10.3); Carbon Dioxide 24.0 mmol/L (21-32); Chloride 113.0 mmol/L (98-107); Creatinine Clr Calc Pharmacy 212.5 ml/min; Globulin 2.0 gm/dl (2.5-4.0); Glucose 116.0 mg/dl (70-99(Fasting)); Magnesium 1.7 mg/dl (1.7-2.4); Potassium 3.7 mmol/L (3.5-5.1); Sodium 139.0 mmol/L (136-145); Total Protein 5.0 gm/dl (6.0-8.3)
[2025-07-12] MEDS ORDERED: SODIUM CHLORIDE 0.9% 100 ML IV PRN ×2 (07:52→08:07)
--- NOTE | 2025-07-12 08:18 | Pharmacy Report ---
Pharmacy PK ABX Note - Date of Service July 12, 2025 - Assessment and Plan Assessment 20 year old F receiving vancomycin and cefepime for treatment of neutropenic fever. Pertinent microbiologic data includes: negative MRSA Nasal Swab, blood cultures growing pending Day #2 of antimicrobial therapy. Plan Vancomycin * Loading dose: 1000 mg IV x 1 (918/25 @2000) * Maintenance dose: 750 mg IV every 8 hours * Regimen is predicted to achieve target AUC/CALEB of 400-600 mg/L.hr * Trough level ordered for: 07/13/2025 @0900 Pharmacy will continue to follow and will adjust dose/frequency as necessary. Thank you. Pharmacy has transitioned to AUC monitoring for vancomycin. AUC/CALEB is the preferred PK/PD target and is associated with decreased risk of nephrotoxicity compared to traditional trough targets.
[2025-07-12] MEDS: SODIUM CHLORIDE 0.9% 1,000 ML IV SCH (09:25)
--- NOTE | 2025-07-12 13:59 | Hospitalist Progress Note ---
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 Finished third round of chemotherapy last week, 07/01-07/03. Currently getting chemotherapy every 3 weeks. Primary oncologist at [facility] is Kathy Wilson MD ([phone]). Neutropenic fever Pancytopenia secondary to chemotherapy--POA Patient received filgrastim and after chemotherapy No obvious source of infection --Blood Cultures:pending --UA not suggestive of UTI --Chest CTA: No signs of PE, consolidation --CT head:No acute intracranial pathology. --Respiratory BioFire negative --Nasal MRSA negative --Normal Procalcitonin --HIM consult placed to obtain records from [facility]. Continue neutropenic precautions Empirically on IV vancomycin, cefepime Follows with oncology at [facility] Transfuse PRBCs, platelets as needed Monitor CBC closely Will consider to de-escalate antibiotics tomorrow if cultures continue to remain negative Received IV fluids Malignant phyllodes tumor of right breast S/P Right mastectomy and wide excision with primary closure on 03/28/2025 Currently undergoing chemotherapy at [facility] Completed 3/4 chemotherapy cycles DVT Px: SCDs/TEDs : Re: Significant anemia, thrombocytopenia CODE STATUS Full code Admission and Anticipated Discharge Date Admission Date: July 11, 2025 Subjective Patient is seen and examined at bedside Offers no specific complaints today Discussed in detail with patient and patient's family at bedside Denies any chest pain, dyspnea, nausea, vomiting, abdominal pain, dysuria, dizziness, Also denies any bleeding issues Review of Systems Review of Systems: All systems reviewed & are unremarkable except as noted in Subjective Physical Exam Physical Exam: Physical Exam: Vitals signs as noted above General Appearance:Thin, frail, no apparent distress Head: normocephalic, Atraumatic Eyes: normal inspection, EOMI Neck: supple, Trachea midline Respiratory/Chest: Normal breath sounds, CTA,+chemo port, No accessory muscle use Cardiovascular: S1, S2, No murmur Abdomen/GI:Soft, Non tender, Bowel sounds present Extremities/Musculoskeletal:normal inspection, no edema Neurologic/Psych:AAOX3, grossly no focal neurological deficits Skin: normal color, warm Results & Data Results & Data Vital Signs (Past 12 Hours) Vital Signs Temp Pulse Pulse Resp BP BP Pulse Ox 07/12/25 13:30 100 H 07/12/25 11:24 36.8 C 107 H 16 101/70 99 07/12/25 10:36 36.7 C 101 H 16 102/64 98 07/12/25 10:06 36.6 C 123 H 18 104/66 98 07/12/25 09:51 36.8 C 112 H 18 97/65 L 98 07/12/25 09:36 37.1 C 117 H 16 101/66 98 07/12/25 09:22 36.8 C 117 H 16 110/62 98 07/12/25 09:20 36.8 C 117 H 16 100/62 98 07/12/25 07:30 94 H 07/12/25 07:17 36.7 C 101 H 18 92/54 L 97 07/12/25 02:14 36.6 C 105 H 16 95/48 L 98 O2 Del Method 07/12/25 13:30 07/12/25 11:24 07/12/25 10:36 07/12/25 10:06 07/12/25 09:51 07/12/25 09:36 07/12/25 09:22 07/12/25 09:20 07/12/25 07:30 07/12/25 07:17 Room Air 07/12/25 02:14 Room Air Laboratory Results Short CBC 07/11/25 07/12/25 Range/Units 16:30 05:57 WBC 0.32 L* 0.43 L* (4.8-10.8) K/ul Hgb 7.5 L 5.8 L* (12.0-16.0) g/dl Hct 20.8 L* 16.9 L* (37.0-47.0) % Plt Count 9 L* 14 L* D (130-400) K/uL BMP 07/11/25 07/12/25 16:30 05:57 Sodium 136 139 Potassium 3.6 3.7 Chloride 104 113 H Carbon Dioxide 23 24 BUN 17 8 Creatinine 0.47 L 0.28 L Glucose 115 H 116 H Calcium 8.9 7.8 L Liver Function 07/11/25 07/12/25 Range/Units 16:30 05:57 Total Bilirubin 0.8 0.6 (0.2-1.0) mg/dl Direct Bilirubin 0.2 (0-0.2) mg/dl AST 17 11 L (13-39) U/L ALT 58 H 39 (7-52) U/L Alkaline Phosphatase 78 51 (34-104) U/L Albumin 3.8 3.0 L (3.4-5.0) gm/dl Urine 07/11/25 Range/Units 16:35 Urine Color Yellow Urine Appearance Clear (Clear) Urine pH 7.5 (4.5-7.5) Ur Specific [place] 1.023 (1.000-1.030) Urine Protein Trace H (Negative) Urine Glucose (UA) Negative (Negative)
--- NOTE | 2025-07-12 15:21 | Electrocardiogram Report ---
Test Reason : Blood Pressure : */* mmHG Vent. Rate : 109 BPM Atrial Rate : 109 BPM P-R Int : 140 ms QRS Dur : 78 ms QT Int : 326 ms P-R-T Axes : 58 75 50 degrees QTcB Int : 439 ms Sinus tachycardia Otherwise normal ECG No previous ECGs available Confirmed by Brian Dorsey ([id number]) on 07/12/2025 3:20:37 PM Referred By: REFERRED SELF Confirmed By: Brian Dorsey
[2025-07-13 07:03] LABS: Platelet Count 20 K/uL (130-400); White Blood Count 1.35 K/ul (4.8-10.8)
[2025-07-13 07:04] LABS: Anion Gap 4.0 (3-11); Blood Urea Nitrogen 7.0 mg/dl (6-23); Calcium 8.0 mg/dl (8.6-10.3); Carbon Dioxide 24.0 mmol/L (21-32); Chloride 110.0 mmol/L (98-107); Creatinine Clr Calc Pharmacy 175.0 ml/min; Glucose 108.0 mg/dl (70-99(Fasting)); Hematocrit (blood only) 20.8 % (37.0-47.0); Hemoglobin 7.1 g/dl (12.0-16.0); Magnesium 1.6 mg/dl (1.7-2.4); Mean Corpuscular Hemoglobin 29.6 pg (25.0-34.0); Mean Corpuscular Volume 86.7 fL (80.0-100.0); Potassium 3.6 mmol/L (3.5-5.1); RDW Standard Deviation 50.2 fL (36.4-46.3); Red Blood Count 2.40 M/uL (4.20-5.40); Sodium 138.0 mmol/L (136-145)
[2025-07-13 07:21] LABS: Dohle Bodies 1+; Immature Granulocytes # (auto) 0.02 K/uL (0.01-0.20); Immature Granulocytes % (auto) 1.5 %; Polychromasia 2+; Tear Drop Cells 2+; Toxic Granulation 1+
[2025-07-13] MEDS ORDERED: SODIUM CHLORIDE 0.9% 100 ML IV PRN (08:59)
[2025-07-13] MEDS: MAGNESIUM SULFATE / D5W 1 GM/100 ML BAG IV ONE ×2 (09:23→21:30)
[2025-07-13] MEDS: VANCOMYCIN LEVEL ONE (09:36)
[2025-07-13 13:45] LABS: Hematocrit (blood only) 21.7 % (37.0-47.0); Hemoglobin 7.5 g/dl (12.0-16.0)
--- NOTE | 2025-07-13 14:34 | Hospitalist Progress Note ---
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 who presented to the ED today with her parents due to fatigue, chills and fever of 102F. Finished third round of chemotherapy last week, 07/01-07/03. Currently getting chemotherapy every 3 weeks. Primary oncologist at [facility] is Kathy Wilson MD ([phone]). Neutropenic fever Pancytopenia secondary to chemotherapy--POA Patient received filgrastim and after chemotherapy No obvious source of infection --Blood Cultures: Negative to date --UA not suggestive of UTI --Chest CTA: No signs of PE, consolidation --CT head:No acute intracranial pathology. --Respiratory BioFire negative --Nasal MRSA negative --Normal Procalcitonin --HIM consult placed to obtain records from [facility]. Continue neutropenic precautions Empirically started on on IV vancomycin, cefepime>> transition to cefepime alone Follows with oncology at [facility] Transfuse PRBCs, platelets as needed Monitor CBC closely Received IV fluids Will transfuse 1 unit platelets today Neutropenia slowly improving Malignant phyllodes tumor of right breast S/P Right mastectomy and wide excision with primary closure on 03/28/2025 Currently undergoing chemotherapy at [facility] Completed 3/4 chemotherapy cycles DVT Px: SCDs/TEDs : Re: Significant anemia, thrombocytopenia CODE STATUS Full code Admission and Anticipated Discharge Date Admission Date: July 11, 2025 Subjective Patient is seen and examined at bedside States feeling well today No complaints offered Discussed with patient's family at bedside Denies any chest pain, dyspnea, nausea, vomiting, abdominal pain, dysuria, dizziness, Review of Systems Review of Systems: All systems reviewed & are unremarkable except as noted in Subjective Physical Exam Physical Exam: Physical Exam: Vitals signs as noted above General Appearance:Thin, frail, no apparent distress Head: normocephalic, Atraumatic Eyes: normal inspection, EOMI Neck: supple, Trachea midline Respiratory/Chest: Normal breath sounds, CTA,+chemo port, No accessory muscle use Cardiovascular: S1, S2, No murmur Abdomen/GI:Soft, Non tender, Bowel sounds present Extremities/Musculoskeletal:normal inspection, no edema Neurologic/Psych:AAOX3, grossly no focal neurological deficits Skin: normal color, warm Results & Data Results & Data Vital Signs (Past 12 Hours) Vital Signs Temp Pulse Pulse Resp BP BP Pulse Ox 07/13/25 13:45 101 H 07/13/25 12:34 36.7 C 106 H 14 102/61 99 07/13/25 12:04 36.7 C 111 H 16 111/66 97 07/13/25 11:04 36.8 C 107 H 18 113/76 99 07/13/25 10:34 37.0 C 109 H 16 120/78 99 07/13/25 10:19 36.9 C 100 H 14 107/71 98 07/13/25 10:09 07/13/25 10:04 36.7 C 107 H 16 106/98 98 07/13/25 08:03 88 07/13/25 07:31 36.7 C 98 H 20 103/67 98 O2 Del Method 07/13/25 13:45 07/13/25 12:34 07/13/25 12:04 07/13/25 11:04 07/13/25 10:34 07/13/25 10:19 07/13/25 10:09 Room Air 07/13/25 10:04 07/13/25 08:03 07/13/25 07:31 Room Air Laboratory Results Short CBC 07/13/25 07/13/25 Range/Units 06:10 13:17 WBC 1.35 L (4.8-10.8) K/ul Hgb 7.1 L 7.5 L (12.0-16.0) g/dl Hct 20.8 L* 21.7 L (37.0-47.0) % Plt Count 20 L* (130-400) K/uL BMP 07/13/25 06:10 Sodium 138 Potassium 3.6 Chloride 110 H Carbon Dioxide 24 BUN 7 Creatinine 0.34 L Glucose 108 H Calcium 8.0 L
[2025-07-13] MEDS: MAGNESIUM CHLORIDE W/CALCIUM 64MG DELAYED REL TAB PO SCH (20:27)
[2025-07-13] MEDS: NSS + 20MEQ KCL 20 MEQ/1,000 ML BAG IV ONE (21:54)
[2025-07-13] MEDS: POTASSIUM CHLORIDE PWD 20 MEQ PACK PO STA (21:54)
[2025-07-13] MEDS: CALCIUM GLUCONATE 1,000 MG/60 ML BAG IV STA (23:13)
[2025-07-13 23:17] VITALS: O2SAT 97
[2025-07-14 06:05] LABS: Hematocrit (blood only) 20.4 % (37.0-47.0); Hemoglobin 7.3 g/dl (12.0-16.0); Mean Corpuscular Hemoglobin 30.8 pg (25.0-34.0); Mean Corpuscular Volume 86.1 fL (80.0-100.0); Platelet Count 28 K/uL (130-400); RDW Standard Deviation 49.1 fL (36.4-46.3); Red Blood Count 2.37 M/uL (4.20-5.40); White Blood Count 3.21 K/ul (4.8-10.8)
[2025-07-14 06:10] LABS: Anion Gap 5.0 (3-11); Blood Urea Nitrogen 6.0 mg/dl (6-23); Calcium 8.7 mg/dl (8.6-10.3); Carbon Dioxide 24.0 mmol/L (21-32); Chloride 107.0 mmol/L (98-107); Creatinine Clr Calc Pharmacy 150.3 ml/min; Glucose 100.0 mg/dl (70-99(Fasting)); Magnesium 1.9 mg/dl (1.7-2.4); Potassium 4.2 mmol/L (3.5-5.1); Sodium 136.0 mmol/L (136-145)
[2025-07-14 06:19] LABS: Dohle Bodies 1+; Immature Granulocytes # (auto) 0.18 K/uL (0.01-0.20); Immature Granulocytes % (auto) 5.6 %; Polychromasia 1+; Tear Drop Cells 2+; Toxic Granulation 2+
[2025-07-14 07:16] VITALS: PULSE 101; RESP 19; TEMP 99
--- NOTE | 2025-07-14 08:23 | Hospitalist Progress Note ---
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 Finished third round of chemotherapy last week, 07/01-07/03. Currently getting chemotherapy every 3 weeks. Primary oncologist at [facility] is Kathy Wilson MD ([phone]). Neutropenic fever Pancytopenia secondary to chemotherapy--POA Patient received filgrastim and after chemotherapy No obvious source of infection --Blood Cultures: Negative to date --UA not suggestive of UTI --Chest CTA: No signs of PE, consolidation --CT head:No acute intracranial pathology. --Respiratory BioFire negative --Nasal MRSA negative --Normal Procalcitonin --HIM consult placed to obtain records from [facility]. Continue neutropenic precautions Empirically received IV vancomycin, cefepime Follows with oncology at [facility] Transfuse PRBCs, platelets as needed Monitor CBC closely Neutropenia, thrombocytopenia improved Hemoglobin stable Advised to follow-up with PCP oncology in 1 week with repeat blood work Plan to be discharged home today Malignant phyllodes tumor of right breast S/P Right mastectomy and wide excision with primary closure on 03/28/2025 Currently undergoing chemotherapy at [facility] Completed 3/4 chemotherapy cycles DVT Px: SCDs/TEDs : Re: Significant anemia, thrombocytopenia CODE STATUS Full code Disposition Home Admission and Anticipated Discharge Date Admission Date: July 11, 2025 Subjective Patient is seen and examined at bedside States feeling a lot better today No new complaints Family at bedside Denies any chest pain, dyspnea, nausea, vomiting, abdominal pain, dysuria, dizziness Plan to be discharged home today Review of Systems Review of Systems: All systems reviewed & are unremarkable except as noted in Subjective Physical Exam Physical Exam: Physical Exam: Vitals signs as noted above General Appearance:Thin, frail, no apparent distress Head: normocephalic, Atraumatic Eyes: normal inspection, EOMI Neck: supple, Trachea midline Respiratory/Chest: Normal breath sounds, CTA,+chemo port, No accessory muscle use Cardiovascular: S1, S2, No murmur Abdomen/GI:Soft, Non tender, Bowel sounds present Extremities/Musculoskeletal:normal inspection, no edema Neurologic/Psych:AAOX3, grossly no focal neurological deficits Skin: normal color, warm Results & Data Results & Data Vital Signs (Past 12 Hours) Vital Signs Temp Pulse Pulse Resp BP Pulse Ox O2 Del Method 07/14/25 07:37 Room Air 07/14/25 07:16 37.2 C 101 H 19 100/65 97 Room Air 07/13/25 23:14 36.6 C 107 H 12 103/63 97 Room Air 07/13/25 23:06 108 H Laboratory Results Short CBC 07/13/25 07/14/25 Range/Units 13:17 05:27 WBC 3.21 L (4.8-10.8) K/ul Hgb 7.5 L 7.3 L (12.0-16.0) g/dl Hct 21.7 L 20.4 L* (37.0-47.0) % Plt Count 28 L* (130-400) K/uL BMP 07/14/25 05:27 Sodium 136 Potassium 4.2 Chloride 107 Carbon Dioxide 24 BUN 6 Creatinine 0.49 L Glucose 100 H Calcium 8.7 Liver Function 07/13/25 Range/Units 21:21 Albumin 3.5 (3.4-5.0) gm/dl
[2025-07-14 09:31] VITALS: BP 107/71
--- NOTE | 2025-07-14 11:35 | Discharge Summary ---
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 Finished third round of chemotherapy last week, 07/01-07/03. Currently getting chemotherapy every 3 weeks. Primary oncologist at [facility] is Kathy Wilson MD. Other than fatigue and fever, patient exhibits no other significant symptoms. Denies any cough, congestion, SOB, chest pain, abdominal pain, bowel habit changes or urinary habit changes. Appetite fair. No N/V. Has not noticed any erythema surrounding her left upper chest wall port site or any drainage from this either. No use of tobacco, alcohol or recreational drugs. Above history obtained from the patient, patient's parents at bedside, discussion with ED provider and associated chart review. Patient seen at bedside in ED with Dr. Youssef. Admission Exam Per Admitting Provider On examination Lying in bed without any apparent distress Tachycardia of 101 and remains afebrile Chestclear to auscultate bilaterally and the port on the anterior chest wall intact HeartS1-S2, regular Abdomenbenign and bowel sound present Extremities no edema Principal Diagnosis Neutropenic fever Pancytopenia Malignant phyllodes tumor of right breast Discharge Data Allergies Allergy/AdvReac Type Severity Reaction Status Date / Time No Known Allergies Allergy Verified 07/11/25 18:11 Consultations 07/11/25 18:49 ED Decision to Admit Stat 07/11/25 22:19 HIM [Consult Health Information Management] Routine Procedures Performed Laboratory Results WBC 3.21 K/ul (4.8-10.8) L 07/14/25 05:27 RBC 2.37 M/uL (4.20-5.40) L 07/14/25 05:27 Hgb 7.3 g/dl (12.0-16.0) L 07/14/25 05:27 Hct 20.4 % (37.0-47.0) L* 07/14/25 05:27 MCV 86.1 fL (80.0-100.0) 07/14/25 05:27 MCH 30.8 pg (25.0-34.0) 07/14/25 05:27 MCHC 35.8 g/dL (32.0-36.0) 07/14/25 05:27 RDW Std Deviation 49.1 fL (36.4-46.3) H 07/14/25 05:27 RDW Coeff of Serina 15.6 % (11.5-14.5) H 07/14/25 05:27 Plt Count 28 K/uL (130-400) L* 07/14/25 05:27 MPV 11.6 fL (9.4-12.4) 07/14/25 05:27 Immature Gran % (Auto) 5.6 % 07/14/25 05:27 Neut % (Auto) 55.8 % 07/14/25 05:27 Lymph % (Auto) 26.5 % 07/14/25 05:27 Beauregard % (Auto) 10.6 % 07/14/25 05:27 Eos % (Auto) 0.9 % 07/14/25 05:27 Baso % (Auto) 0.6 % 07/14/25 05:27 Neut # (Auto) 1.79 K/uL (1.40-6.50) 07/14/25 05:27 Lymph # (Auto) 0.85 K/uL (1.20-3.40) L 07/14/25 05:27 Beauregard # (Auto) 0.34 K/uL (0.11-0.59) 07/14/25 05:27 Eos # (Auto) 0.03 K/uL (0.00-0.50) 07/14/25 05:27 Baso # (Auto) 0.02 K/uL (0.00-0.20) 07/14/25 05:27 Immature Gran # (Auto) 0.18 K/uL (0.01-0.20) 07/14/25 05:27 Neutrophils % (Manual) Cancelled 07/12/25 05:57 Band Neutrophils % Cancelled 07/12/25 05:57 Lymphocytes % (Manual) Cancelled 07/12/25 05:57 Prolymphocyte % Cancelled 07/12/25 05:57 Reactive Lymphs % (Man) Cancelled 07/12/25 05:57 Monocytes % (Manual) Cancelled 07/12/25 05:57 Eosinophils % (Manual) Cancelled 07/12/25 05:57 Basophils % (Manual) Cancelled 07/12/25 05:57 Metamyelocytes % (Man) Cancelled 07/12/25 05:57 Myelocytes % (Man) Cancelled 07/12/25 05:57 Promyelocytes % (Man) Cancelled 07/12/25 05:57 Blast Cells % (Manual) Cancelled 07/12/25 05:57 Plasma Cell % (Manual) Cancelled 07/12/25 05:57 Other Cells % Cancelled 07/12/25 05:57 Nucleated RBC % Cancelled 07/12/25 05:57 Neutrophils # (Manual) Cancelled 07/12/25 05:57 Band Neutrophils # Cancelled 07/12/25 05:57 Total Absolute Neuts Cancelled 07/12/25 05:57 Lymphocytes # (Manual) Cancelled 07/12/25 05:57 Prolymphocyte # Cancelled 07/12/25 05:57 Reactive Lymphs # Cancelled 07/12/25 05:57 Total Abs Lymphocytes Cancelled 07/12/25 05:57 Monocytes # (Manual) Cancelled 07/12/25 05:57 Eosinophils # (Manual) Cancelled 07/12/25 05:57 Basophils # (Manual) Cancelled 07/12/25 05:57 Metamyelocytes # (Man) Cancelled 07/12/25 05:57 Myelocytes # (Manual) Cancelled 07/12/25 05:57 Promyelocytes # (Man) Cancelled 07/12/25 05:57 Blast Cells # (Man) Cancelled 07/12/25 05:57 Plasma Cell # (Manual) Cancelled 07/12/25 05:57 Other Cells # Cancelled 07/12/25 05:57 Nucleated RBCs # (Man) Cancelled 07/12/25 05:57 Hypersegmented Neuts Cancelled 07/12/25 05:57 Hyposegmented Neuts Cancelled 07/12/25 05:57 Hypogranular Neuts Cancelled 07/12/25 05:57 Large Granular Lymphs Cancelled 07/12/25 05:57 # Lrg Granular Lymphs Cancelled 07/12/25 05:57 Hairy Cells Cancelled 07/12/25 05:57 Smudge Cells Cancelled 07/12/25 05:57 Toxic Granulation 2+ 07/14/25 05:27 Toxic Vacuolation Cancelled 07/12/25 05:57 Dohle Bodies 1+ 07/14/25 05:27 Jean Pierre Rods Cancelled 07/12/25 05:57 Hypogranular Platelets Cancelled 07/12/25 05:57 Giant Platelets Cancelled 07/12/25 05:57 Platelet Satelliting Cancelled 07/12/25 05:57 RBC Morphology Cancelled 07/12/25 05:57 Polychromasia 1+ 07/14/25 05:27 Hypochromasia Cancelled 07/12/25 05:57 Poikilocytosis Cancelled 07/12/25 05:57 Basophilic Stippling Cancelled 07/12/25 05:57 Anisocytosis Cancelled 07/12/25 05:57 Microcytosis Cancelled 07/12/25 05:57 Macrocytosis Cancelled 07/12/25 05:57 Spherocytes Cancelled 07/12/25 05:57 Pappenheimer Bodies Cancelled 07/12/25 05:57 Sickle Cells Cancelled 07/12/25 05:57 Target Cells Cancelled 07/12/25 05:57 Tear Drop Cells 2+ 07/14/25 05:27 Ovalocytes Cancelled 07/12/25 05:57 Stomatocytes Cancelled 07/12/25 05:57 [place] Bodies Cancelled 07/12/25 05:57 Echinocytes Cancelled 07/12/25 05:57 Acanthocytes (Spur) Cancelled 07/12/25 05:57 Rouleaux Cancelled 07/12/25 05:57 RBC Agglutinates Cancelled 07/12/25 05:57 Schistocytes Cancelled 07/12/25 05:57 Sezary Cell Cancelled 07/12/25 05:57 PT 11.2 Seconds (9.0-12.0) 07/11/25 16:30 INR 1.0 (0.9-1.1) 07/11/25 16:30 VBG pH 7.55 (7.36-7.41) H 07/11/25 16:30 VBG pCO2 25 mmHg (38-50) L 07/11/25 16:30 VBG pO2 52 mmHg 07/11/25 16:30 VBG HCO3 22 mmol/L 07/11/25 16:30 VBG O2 Saturation 87.0 % 07/11/25 16:30 VBG Base Excess 0.9 mEq/L 07/11/25 16:30 Sodium 136 mmol/L (136-145) 07/14/25 05:27 Potassium 4.2 mmol/L (3.5-5.1) 07/14/25 05:27 Chloride 107 mmol/L (98-107) 07/14/25 05:27 Carbon Dioxide 24 mmol/L (21-32) 07/14/25 05:27 Anion Gap 5 (3-11) 07/14/25 05:27 BUN 6 mg/dl (6-23) 07/14/25 05:27 Creatinine 0.49 mg/dl (0.6-1.2) L 07/14/25 05:27 Est Cr Clr Drug Dosing 150.3 ml/min 07/14/25 05:27 eGFR 138.29 07/14/25 05:27 BUN/Creatinine Ratio 12.2 (10-20) 07/14/25 05:27 Glucose 100 mg/dl (70-99(Fasting)) H 07/14/25 05:27 Lactate 0.5 mmol/L (0.4-2.0) 07/11/25 16:30 Calcium 8.7 mg/dl (8.6-10.3) 07/14/25 05:27 Magnesium 1.9 mg/dl (1.7-2.4) 07/14/25 05:27 Total Bilirubin 0.6 mg/dl (0.2-1.0) 07/12/25 05:57 Direct Bilirubin 0.2 mg/dl (0-0.2) 07/11/25 16:30 AST 11 U/L (13-39) L 07/12/25 05:57 ALT 39 U/L (7-52) 07/12/25 05:57 Alkaline Phosphatase 51 U/L (34-104) 07/12/25 05:57 Troponin I High Sens 6.9 pg/ml (0-14) 07/11/25 16:30 Total Protein 5.0 gm/dl (6.0-8.3) L D 07/12/25 05:57 Albumin 3.5 gm/dl (3.4-5.0) 07/13/25 21:21 Globulin 2.0 gm/dl (2.5-4.0) L 07/12/25 05:57 Albumin/Globulin Ratio 1.5 (0.9-2) 07/12/25 05:57 Procalcitonin 0.11 ng/ml (0-0.5) 07/11/25 16:30 Urine Color Yellow 07/11/25 16:35 Urine Appearance Clear (Clear) 07/11/25 16:35 Urine pH 7.5 (4.5-7.5) 07/11/25 16:35 Ur Specific Drake 1.023 (1.000-1.030) 07/11/25 16:35 Urine Protein Trace (Negative) H 07/11/25 16:35 Urine Glucose (UA) Negative (Negative) 07/11/25 16:35 Urine Ketones 1+ (Negative) H 07/11/25 16:35 Urine Blood Negative (Negative) 07/11/25 16:35 Urine Nitrite Negative (Negative) 07/11/25 16:35 Urine Bilirubin Negative (Negative) 07/11/25 16:35 Urine Urobilinogen Negative (Negative) 07/11/25 16:35 Ur Leukocyte Esterase Negative (Negative) 07/11/25 16:35 Urine WBC (Auto) 0-5 /hpf (0-5) 07/11/25 16:35 Urine RBC (Auto) 0-2 /hpf (0-2) 07/11/25 16:35 U Hyaline Cast (Auto) 0-2 /lpf (0-2) 07/11/25 16:35 U Epithel Cells (Auto) 0-2 /hpf (0-2) 07/11/25 16:35 Urine Bacteria (Auto) None Seen (None Seen) 07/11/25 16:35 Urine Test Negative (Negative) 07/12/25 08:05 Urine Comment 07/11/25 16:35 Nasal Screen MRSA (PCR) Negative (Negative) 07/11/25 18:55 Adenovirus (PCR) Not Detected (NotDetected) 07/11/25 16:35 B. pertussis DNA (PCR) Not Detected (NotDetected) 07/11/25 16:35 B.parapertussis DNA PCR Not Detected (NotDetected) 07/11/25 16:35 C. pneumoniae DNA (PCR) Not Detected (NotDetected) 07/11/25 16:35 Coronavirus OC43 (PCR) Not Detected (NotDetected) 07/11/25 16:35 Coronavirus HKU1 (PCR) Not Detected (NotDetected) 07/11/25 16:35 Coronavirus 229E (PCR) Not Detected (NotDetected) 07/11/25 16:35 SARS-CoV-2 (PCR) Not Detected (NotDetected) 07/11/25 16:35 Coronavirus NL63 (PCR) Not Detected (NotDetected) 07/11/25 16:35 Human Metapneumovir PCR Not Detected (NotDetected) 07/11/25 16:35 Influenza Type A (PCR) Not Detected (NotDetected) 07/11/25 16:35 Influenza Type B (PCR) Not Detected (NotDetected) 07/11/25 16:35 M. pneumoniae (PCR) Not Detected (NotDetected) 07/11/25 16:35 Parainfluenza 1 (PCR) Not Detected (NotDetected) 07/11/25 16:35 Parainfluenza 2 (PCR) Not Detected (NotDetected) 07/11/25 16:35 Parainfluenza 3 (PCR) Not Detected (NotDetected) 07/11/25 16:35 Parainfluenza 4 (PCR) Not Detected (NotDetected) 07/11/25 16:35 RSV (PCR) Not Detected (NotDetected) 07/11/25 16:35 Entero/Rhino (PCR) Not Detected (NotDetected) 07/11/25 16:35 Blood Parasites ID Cancelled 07/12/25 05:57 Blood Type A Positive 07/11/25 19:26 Blood Type Recheck A Positive 07/12/25 05:57 Antibody Screen NEGATIVE 07/11/25 19:26 Crossmatch See Detail 07/11/25 19:26 Impressions Chest X-Ray 07/11/25 16:03 Chest radiograph, one view History: Sepsis Comparison: None Findings: Single AP view of the chest performed. No focal consolidation or pleural effusion. No pneumothorax. Left chest wall port with catheter tip at the lower SVC. Right mastectomy changes. The cardiomediastinal silhouette is within normal limits. Normal pulmonary vascularity. No evidence for lymphadenopathy. No visualized bony or soft tissue abnormality. Impression: Normal chest radiograph Electronically signed by Tomasz Amin 07-11-2025 5:25 PM Chest CTA 07/11/25 16:15 CT pulmonary angiogram with IV contrast History: Chest pain COMPARISON: None TECHNIQUE: CT angiography of the chest was performed without IV contrast followed by IV contrast, including 3D post processing CTA image reconstruction. Dose reduction techniques were achieved by using automatic exposure control and/or adjustment of mA and/or kV according to patient size and/or use of iterative reconstruction technique. FINDINGS: Diagnostic quality: Adequate There is no evidence for pulmonary embolism. Left chest wall port with catheter tip at the superior atrial caval junction. The heart is not enlarged. There is no pericardial effusion. There are no abnormally enlarged hilar or mediastinal lymph nodes. The central tracheobronchial tree is clear. The lungs are clear. There is no pleural effusion. Limited visualized upper abdomen. No destructive osseous changes are seen. Right mastectomy. IMPRESSION: No evidence for pulmonary embolism. Electronically signed by Tomasz Amin 07-11-2025 5:[address] 07/11/25 16:58 CT head without contrast History: Rule out PE Comparison: None Technique: Using multidetector thin collimation helical acquisition technique, axial, coronal and sagittal CT images from the skull base to the vertex were obtained without intravenous contrast. Dose reduction techniques were achieved by using automatic exposure control and/or adjustment of mA and/or kV according to patient size and/or use of iterative reconstruction technique. Findings: No intracranial hemorrhage, mass-effect, or midline shift. The ventricles are proportionate to the cerebral sulci. The morrell to white matter differentiation of the cerebral hemispheres is preserved. The basal cisterns are patent. The visualized paranasal sinuses are clear. Mastoid air cells are clear. Impression: No acute intracranial pathology. 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 Finished third round of chemotherapy last week, 07/01-07/03. Currently getting chemotherapy every 3 weeks. Primary oncologist at [facility] is Kathy Wilson MD ([phone]). Neutropenic fever Pancytopenia secondary to chemotherapy--POA Patient received filgrastim and after chemotherapy No obvious source of infection --Blood Cultures: Negative to date --UA not suggestive of UTI --Chest CTA: No signs of PE, consolidation --CT head:No acute intracranial pathology. --Respiratory BioFire negative --Nasal MRSA negative --Normal Procalcitonin --HIM consult placed to obtain records from [facility]. Continue neutropenic precautions Empirically received IV vancomycin, cefepime Follows with oncology at [facility] Transfuse PRBCs, platelets as needed Monitor CBC closely Neutropenia, thrombocytopenia improved Hemoglobin stable Advised to follow-up with PCP oncology in 1 week with repeat blood work Plan to be discharged home today Malignant phyllodes tumor of right breast S/P Right mastectomy and wide excision with primary closure on 03/28/2025 Currently undergoing chemotherapy at [facility] Completed 3/4 chemotherapy cycles DVT Px: SCDs/TEDs : Re: Significant anemia, thrombocytopenia CODE STATUS Full code Disposition Home Total Time Total Time Spent Total Time Spent (In Minutes): 52 minutes Discharge Plan Discharge Items Patient Disposition: Home - Self-Care Reason For Visit: NEUTROPENIC FEVER Discharge Diagnosis: Neutropenic fever Pancytopenia Malignant phyllodes tumor of right breast Condition on Discharge: Serious Activity: Per Instructions section Exercise/Sports: Wait until after follow-up appointment Non-emergency contact: Primary Care Provider and Oncologist Call non-emergency contact if: you have any medication questions, your symptoms worsen, your pain is concerning for you and you have a fever Follow-up/Referrals: Ivet Middleton, [Primary Care Provider] - Diet: Regular Addtl Attending Provider Instructions: -- Follow-up with your primary care physician in 1 week -- Follow-up with your oncologist at [facility] as recommended --Obtain blood test (complete blood count) in 1 week and follow-up with your primary care physician/oncologist for further recommendations --Complete the antibiotic course cefuroxime as prescribed --Your final blood cultures are pending at the time of discharge. Follow-up with your physician for results. Seek immediate medical attention if your symptoms reoccur or worsen Please review medication list provided on discharge for any medication changes as instructed. Please call if you have any questions or problems. You can reach a [facility] hospitalist on duty at [facility] 24 hours a day by calling [phone] Pending Studies at Discharge: Yes Studies:: Blood cultures Stand-Alone Forms: My [facility], Smoking Cessation Medications and DC Order Prescriptions: New cefuroxime axetil 500 mg tablet 500 mg PO BID Qty: 6 0RF Continued loratadine [Claritin] 10 mg Tablet 10 mg PO HS Discharge Orders: Discharge Order (Routine); Ordered 07/14/25 Ordered By: Ralph Dobbins Admission Data Admit Date/Time: 07/11/25 20:10 Attending Provider: Ralph Dobbins Admit Provider: Nenka Youssef Primary Care Provider: Ivet Middleton Other Providers: Nneka Youssef Other Interventions: Discharge Summary Assessment (RN) Last Done: 07/14/25 09:30
== END 2025-07-14 09:57 | disposition home or self-care (01) | DRG 808 ==
LOC: ED 15:08 → 2S 20:12 → SUATTDRO 20:12 → 2S 21:42